=== PATIENT | female | born 1990 | race Two or more races ===

== ENCOUNTER 2018-09-10 16:12 | Emergency (ER) | payer BC, MEDICAID, OTHER ==
[~2018-09-10] VITALS: Ht 157.5 cm; Wt 53.1 kg
[2018-09-10 16:16] VITALS: BP 139/82
== END 2018-09-10 17:46 | disposition home or self-care (01) ==
LOC: ER 16:26
DX: B37.3 Candidiasis of vulva and vagina (principal); F10.10 Alcohol abuse, uncomplicated; Y90.9 Presence of alcohol in blood, level not specified